=== PATIENT | male | born 1985 | race African-American/Black ===

== ENCOUNTER 2017-01-03 04:13 | Emergency (ER) | payer SELFPAY ==
[2017-01-03] MEDS ORDERED: NORMAL SALINE 1000 ML 1,000 ML IV ONE (06:31)
[2017-01-03 07:07] LABS: HEMATOCRIT 39.4 % (37.9-51.0); HEMOGLOBIN 11.9 g/dL (13.5-17.0); HGB HCT DIFFERENCE -3.7; MEAN CORPUSCULAR HEMOGLOBIN 27.7 pg (27.0-33.4); MEAN CORPUSCULAR VOLUME 92 fl (80-97); RED BLOOD COUNT 4.28 10^6/uL (4.35-5.55)
--- NOTE | 2017-01-03 07:08 | ER Document Report ---
ED General - General Chief Complaint: ETOH Abuse Stated Complaint: POSSIBLE INTOXICATION,UNRESPONSIVE Mode of Arrival: Medic Information source: Emergency Med Personnel Cannot obtain history due to: Altered mental status Notes: This is a 31-year-old male who is brought from the skilled nursing after being detained for DUI. Apparently at the skilled nursing he began vomiting and having altered mental status and so EMS was called. He is here for medical clearance prior to return to skilled nursing. There is no other medical history available at the time as the patient is not able to answer questions. - Related Data Allergies/Adverse Reactions: No Known Allergies Allergy (Verified 03/18/14 11:42) Past Medical History - General Information source: Emergency Med Personnel Cannot obtain history due to: Intoxicated, Altered mental status - Social History Smoking Status: Unknown if Ever Smoked Family History: Reviewed & Not Pertinent - Medical History Notes: Unknown, unable to obtain Pulmonary Medical History: Reports: Hx Asthma Surgical Hx: Other - Unknown, unable to obtain - Immunizations Hx Diphtheria, Pertussis, Tetanus Vaccination: Yes Review of Systems - Review of Systems -: Yes ROS unobtainable due to patient's medical condition Physical Exam - Vital signs Vitals: Pulse Resp BP Pulse Ox 75 16 117/68 93 01/03/17 04:17 01/03/17 04:17 01/03/17 04:17 01/03/17 04:17 - Notes Notes: PHYSICAL EXAMINATION: GENERAL: sleeping, arousable to tactile stimulation, opens eyes and pushes examiner away, will not answer questions, smells of alcohol HEAD: Atraumatic, normocephalic. EYES: Pupils equal round and reactive to light, sclera anicteric, conjunctiva are normal. ENT: nares patent, oropharynx clear without exudates. Moist mucous membranes. NECK: Normal range of motion, supple without lymphadenopathy LUNGS: Breath sounds clear to auscultation bilaterally and equal. No wheezes rales or rhonchi. HEART: Regular rate and rhythm without murmurs ABDOMEN: Soft, nontender, normoactive bowel sounds. No guarding, no rebound. No masses appreciated. EXTREMITIES: Normal range of motion, no pitting or edema. No evidence of trauma NEUROLOGICAL: responsive to tactile stimulation. Not cooperative with neuro exam but does move all 4 extremities SKIN: Warm, Dry, normal turgor, no rashes or lesions noted. Course - Re-evaluation Re-evalutation: 01/03/17 09:02 Patient is now awake and alert. He is standing up in the exam room and anxious to leave. He tells me that he had 2 or 3 beers last night. He states that he feels fine right now and denies any pain, nausea. His family is also in the room with him. His labs and CT are reviewed and he is comfortable with plan for discharge. Return precautions discussed. - Vital Signs Vital signs: Temp Pulse Resp BP Pulse Ox 97.6 F 72 18 109/61 100 01/03/17 09:11 01/03/17 09:11 01/03/17 09:11 01/03/17 09:11 01/03/17 09:11 - Laboratory Result Diagrams: 01/03/17 04:29 01/03/17 04:29 Laboratory results interpreted by me: 01/03/17 01/03/17 01/03/17 04:29 04:29 08:55 RBC 4.28 L Hgb 11.9 L MCHC 30.0 L Band Neutrophils % 1 L Potassium 3.5 L Glucose 132 H Urine Blood MODERATE H Serum alcohol level 174 - Diagnostic Test Radiology reviewed: Reports reviewed - CT head shows no acute abnormality Discharge - Discharge Clinical Impression: Acute alcohol intoxication Qualifiers: Complication of substance-induced condition: uncomplicated Qualified Code(s): F10.120 - Alcohol abuse with intoxication, uncomplicated Condition: Good Disposition: HOME, SELF-CARE Additional Instructions: ACUTE ALCOHOL INTOXICATION and ALCOHOL ABUSE: Your evaluation revealed very high levels of alcohol. You can from drinking a large amount of alcohol rapidly! Further, there's the risk of falls , traffic accidents, and fights. A high portion (about 50 percent) of the serious injuries seen in hospital emergency rooms are caused by alcohol. Alcohol overdosage is usually due to an underlying emotional or psychiatric problem. You may benefit from counselling. If "binge" drinking is an ongoing problem for you, or if you drink ANY AMOUNT of alcohol EVERY day, you most likely have a tendency to alcoholism. You should avoid alcohol totally. We can refer you for treatment. Persons with alcohol problems are often also prone to other addictions -- you should discuss any use of medications or drugs with the doctor. You should be watched at home for the next several hours by someone who has not been drinking. Get extra fluids for the next 24 hours. Call the doctor if there is repeated vomiting, increasing headache, decreasing level of alertness, or any other worsening. FOLLOW-UP CARE: If you have been referred to a physician for follow-up care, call the physician s office for an appointment as you were instructed or within the next two days. If you experience worsening or a significant change in your symptoms, notify the physician immediately or return to the Emergency Department at any time for re-evaluation.
[2017-01-03 07:21] LABS: ALANINE AMINOTRANSFERASE 36 U/L (21-72); ALBUMIN 4.7 g/dL (3.5-5.0); ALCOHOL 174 mg/dL (NONE DETECTED); ALKALINE PHOSPHATASE 82 U/L (38-126); ANION GAP 17 (5-19); ASPARTATE AMINO TRANSFERASE 26 U/L (17-59); BILIRUBIN,TOTAL 0.6 mg/dL (0.2-1.3); BLOOD UREA NITROGEN 14 mg/dL (7-20); CALCIUM 9.2 mg/dL (8.4-10.2); CARBON DIOXIDE 24 mmol/L (22-30); CHLORIDE 100 mmol/L (98-107); CREATININE RESULT 1.03 mg/dL (0.52-1.25); GLUCOSE 132 mg/dL (75-110); POTASSIUM 3.5 mmol/L (3.6-5.0); SODIUM 141.1 mmol/L (137-145); TOTAL PROTEIN 7.8 g/dL (6.3-8.2)
[2017-01-03 07:30] LABS: BAND NEUTROPHILS % (MANUAL) 1 % (3-5); BASOPHILS % (MANUAL) 0 % (0-2); EOSINOPHILS % (MANUAL) 2 % (0-6); LYMPHOCYTES % (MANUAL) 37 % (13-45); TOTAL CELLS COUNTED 100
[2017-01-03 07:31] LABS: PLATELET CLUMPS PRESENT; RBC MORPHOLOGY COMMENT NORMO-CYTIC/CHROMIC
[2017-01-03 09:12] VITALS: BP 109/61
[2017-01-03 09:19] LABS: APPEARANCE,URINE CLEAR; BILIRUBIN,URINE NEGATIVE (NEGATIVE); GLUCOSE, URINE NEGATIVE (NEGATIVE); KETONES,URINE NEGATIVE (NEGATIVE); LEUKOCYTE ESTERASE,URINE NEGATIVE (NEGATIVE); NITRITE,URINE NEGATIVE (NEGATIVE); PROTEIN,URINE NEGATIVE (NEGATIVE); URINE SPECIFIC GRAVITY 1.008; UROBILINOGEN,URINE NEGATIVE mg/dL (<2.0)
[2017-01-03 09:36] LABS: URINE BARBITURATES SCREEN NEGATIVE; URINE METHADONE SCREEN NEGATIVE; URINE OPIATES LOW NEGATIVE; URINE PHENCYCLIDINE SCREEN NEGATIVE
== END 2017-01-03 09:20 | disposition home or self-care (01) ==
LOC: ER 04:13
DX: F10.120 Alcohol abuse with intoxication, uncomplicated (principal); R41.82 Altered mental status, unspecified
CPT/HCPCS: 99284; 96360; 36415; 80307 ×2; 85025; 80053; 81001; 70450; J7030

== ENCOUNTER 2019-09-01 04:41 | Emergency (ER) | payer SELFPAY ==
[2019-09-01] MEDS ORDERED: ONDANSETRON HCL INJ/PF 4 MG/2 ML SDV IV ONE (05:25)
[2019-09-01] MEDS ORDERED: FAMOTIDINE INJ/PF 20 MG/2 ML SDV IV ONE (05:33)
[2019-09-01] MEDS ORDERED: NORMAL SALINE 1000 ML 1,000 ML IV ONE (05:33)
[2019-09-01 06:31] LABS: ABSOLUTE EOSINOPHILS # (AUTO) 0.1 10^3/uL (0.0-0.6); ABSOLUTE MONOCYTES (AUTO) 0.5 10^3/uL (0.1-1.4); ABSOLUTE NEUT (AUTO) 8.5 10^3/uL (1.7-8.2); BASOPHILS % (AUTO) 0.5 % (0-2); EOSINOPHILS % (AUTO) 0.6 % (0-6); HEMATOCRIT 41.1 % (37.9-51.0); HEMOGLOBIN 13.7 g/dL (13.5-17.0); LYMPHOCYTES % (AUTO) 9.6 % (13-45); MEAN CORPUSCULAR HEMOGLOBIN 31.4 pg (27.0-33.4); MEAN CORPUSCULAR HGB CONC 33.3 g/dL (32.0-36.0); MEAN CORPUSCULAR VOLUME 94 fl (80-97); MONOCYTES % (AUTO) 4.9 % (3-13); PLATELET COUNT 265 10^3/uL (150-450); RED BLOOD COUNT 4.36 10^6/uL (4.35-5.55); RED CELL DISTRIBUTION WIDTH 12.7 % (11.5-14.0); SEGMENTED NEUTROPHILS % (AUTO) 84.4 % (42-78); TOTAL CELLS COUNTED % (AUTO) 100 %; WHITE BLOOD COUNT 10.1 10^3/uL (4.0-10.5)
--- NOTE | 2019-09-01 06:36 | ER Document Report ---
ED GI/ - General Chief Complaint: Vomiting Stated Complaint: VOMITING Time Seen by Provider: 09/01/19 05:33 Notes: Patient is a 34-year-old male presents to the emergency department for nausea and vomiting. States he woke up proximally 30 minutes prior to coming to the emergency department with generalized epigastric abdominal pain. States he is vomited "4 or 5 times" since arrival to the emergency department. Patient's denying any blood in his emesis. Patient's denying any diarrhea or fevers. States he bought a "meal plate" from a family friend this evening and feels as though he may have food poisoning. Patient's denying any dysuria. Patient is also complaining of left ear pain. TRAVEL OUTSIDE OF THE [place] IN LAST 30 DAYS: No - Related Data Allergies/Adverse Reactions: No Known Allergies Allergy (Verified 03/18/14 11:42) Past Medical History - General Information source: Patient - Social History Smoking Status: Current Every Day Smoker Frequency of alcohol use: None Drug Abuse: None Family History: Reviewed & Not Pertinent Patient has suicidal ideation: No Patient has homicidal ideation: No Pulmonary Medical History: Reports: Hx Asthma - Immunizations Hx Diphtheria, Pertussis, Tetanus Vaccination: Yes Review of Systems - Review of Systems Constitutional: denies: Fever EENT: See HPI Cardiovascular: No symptoms reported Respiratory: No symptoms reported Gastrointestinal: See HPI Genitourinary: No symptoms reported Male Genitourinary: No symptoms reported Musculoskeletal: No symptoms reported Skin: No symptoms reported Hematologic/Lymphatic: No symptoms reported Neurological/Psychological: No symptoms reported Physical Exam - Vital signs Vitals: Temp Pulse Resp BP Pulse Ox 97.5 F 79 16 115/75 98 09/01/19 04:50 09/01/19 04:50 09/01/19 04:50 09/01/19 04:50 09/01/19 04:50 - Notes Notes: GENERAL: Alert, interacts well. No acute distress. HEAD: Normocephalic, atraumatic. EYES: Pupils equal, round, and reactive to light. Extraocular movements intact. ENT: Oral mucosa moist, tongue midline. Right TM and canal within normal limits, left TM within normal limits, canal erythematous and swollen, positive tragal tenderness noted. No mastoid erythema or tenderness noted bilaterally. NECK: Full range of motion. Supple. Trachea midline. LUNGS: Clear to auscultation bilaterally, no wheezes, rales, or rhonchi. No respiratory distress. HEART: Regular rate and rhythm. No murmur ABDOMEN: Soft, slight epigastric abdominal pain noted, otherwise abdominal exam benign. Non-distended. Bowel sounds present in all 4 quadrants. EXTREMITIES: Moves all 4 extremities spontaneously. No edema, normal radial and dorsalis pedis pulses bilaterally. No cyanosis. BACK: no cervical, thoracic, lumbar midline tenderness. No saddle anesthesia, normal distal neurovascular exam. No CVA tenderness noted bilaterally. NEUROLOGICAL: Alert and oriented x3. Normal speech. cranial nerves II through XII grossly intact PSYCH: Normal affect, normal mood. SKIN: Warm, dry, normal turgor. No rashes or lesions noted. Course - Re-evaluation Re-evalutation: 09/01/19 07:15 Laboratory 09/01/19 09/01/19 09/01/19 06:04 06:04 06:24 WBC 10.1 RBC 4.36 Hgb 13.7 Hct 41.1 MCV 94 MCH 31.4 MCHC 33.3 RDW 12.7 Plt Count 265 Lymph % (Auto) 9.6 L [place] % (Auto) 4.9 Eos % (Auto) 0.6 Baso % (Auto) 0.5 Absolute Neuts (auto) 8.5 H Absolute Lymphs (auto) 1.0 Absolute Monos (auto) 0.5 Absolute Eos (auto) 0.1 Absolute Basos (auto) 0.0 Seg Neutrophils % 84.4 H Sodium 139.9 Potassium 3.6 Chloride 102 Carbon Dioxide 28 Anion Gap 10 BUN 13 Creatinine 1.07 Est GFR ( Amer) > 60 Est GFR (MDRD) Non-Af > 60 Glucose 95 Calcium 9.8 Total Bilirubin 1.0 Direct Bilirubin 0.1 Neonat Total Bilirubin Not Reportable Neonat Direct Bilirubin Not Reportable Neonat Indirect Bili Not Reportable AST 29 ALT 22 Alkaline Phosphatase 81 Total Protein 7.6 Albumin 4.6 Lipase 82.9 Urine Color YELLOW Urine Appearance SLIGHTLY-CLOUDY Urine pH 5.0 Ur Specific [place] 1.024 Urine Protein 30 H Urine Glucose (UA) NEGATIVE Urine Ketones NEGATIVE Urine Blood LARGE H Urine Nitrite NEGATIVE Urine Bilirubin NEGATIVE Urine Urobilinogen NEGATIVE Ur Leukocyte Esterase NEGATIVE Urine WBC (Auto) 1 Urine RBC (Auto) 7 U Hyaline Cast (Auto) 3 Squamous Epi Cells Auto <1 Urine Mucus (Auto) MOD Urine Ascorbic Acid NEGATIVE Patient's nausea vomiting and epigastric pain has subsided. Patient is able to drink fluids in the emergency department with no further episodes of vomiting. Repeat physical exam reveals no epigastric abdominal pain. Abdominal exam is be nign. Discussed continued use of Zofran, Pepcid and Ciprodex for left otitis externa. At this time will discharge with return precautions and follow-up recommendations. Verbal discharge instructions given a the bedside and opportunity for questions given. Medication warnings reviewed. Patient is in agreement with this plan and has verbalized understanding of return precautions and the need for primary care follow-up in the next 24-72 hours. This medical record was dictated with voice recognizing software. There may be grammatical, syntax errors that are unintended. - Vital Signs Vital signs: Temp Pulse Resp BP Pulse Ox 97.5 F 79 16 123/68 100 09/01/19 04:50 09/01/19 04:50 09/01/19 06:40 09/01/19 06:40 09/01/19 06:40 - Laboratory Result Diagrams: 09/01/19 06:04 09/01/19 06:04 Laboratory results interpreted by me: 09/01/19 09/01/19 06:04 06:24 Lymph % (Auto) 9.6 L Absolute Neuts (auto) 8.5 H Seg Neutrophils % 84.4 H Urine Protein 30 H Urine Blood LARGE H Discharge - Discharge Clinical Impression: Nausea & vomiting Qualifiers: Vomiting type: unspecified Vomiting Intractability: non-intractable Qualified Code(s): R11.2 - Nausea with vomiting, unspecified Left otitis externa Qualifiers: Otitis externa type: unspecified type Chronicity: acute Qualified Code(s): H60.502 - Unspecified acute noninfective otitis externa, left ear Condition: Stable Disposition: HOME, SELF-CARE Instructions: Antinausea Medication ([facility]), Intravenous (IV) Fluids ([facility]), Use of Ear Drops ([facility]), Otitis Externa ([facility]), Vomiting ([facility]) Additional Instructions: You have been seen and treated in the emergency department for your nausea and vomiting. You also have an outer ear infection. Please use nausea medication as needed. Please also use prescription eardrops as prescribed. Please follow- up with your primary care provider in the next 24 to 48 hours. Return to the emergency room for any concerns. Prescriptions: Ciprofloxacin HCl/Dexameth [Ciprodex Otic Suspension 7.5 ml Bottle] 4 drop BID 5 Days #1 bottle Famotidine [Pepcid 40 mg Tablet] 40 mg PO BID #60 tablet Forms: Return to Work Referrals: [facility] [Provider Group] - Follow up as needed [facility] [Provider Group] - Follow up as needed
[2019-09-01 06:39] LABS: APPEARANCE,URINE SLIGHTLY-CLOUDY; BILIRUBIN,URINE NEGATIVE (NEGATIVE); COLOR,URINE YELLOW; GLUCOSE, URINE NEGATIVE (NEGATIVE); KETONES,URINE NEGATIVE (NEGATIVE); LEUKOCYTE ESTERASE,URINE NEGATIVE (NEGATIVE); NITRITE,URINE NEGATIVE (NEGATIVE); PROTEIN,URINE 30 mg/dL (NEGATIVE); URINE SPECIFIC GRAVITY 1.024; UROBILINOGEN,URINE NEGATIVE mg/dL (<2.0)
[2019-09-01 06:50] LABS: ALBUMIN 4.6 g/dL (3.5-5.0); ALKALINE PHOSPHATASE 81 U/L (38-126); ANION GAP 10 (5-19); ASPARTATE AMINO TRANSFERASE 29 U/L (17-59); BILIRUBIN,DIRECT 0.1 mg/dL (0.0-0.4); BLOOD UREA NITROGEN 13 mg/dL (7-20); CALCIUM 9.8 mg/dL (8.4-10.2); CARBON DIOXIDE 28 mmol/L (22-30); CHLORIDE 102 mmol/L (98-107); GLUCOSE 95 mg/dL (75-110); POTASSIUM 3.6 mmol/L (3.6-5.0); TOTAL PROTEIN 7.6 g/dL (6.3-8.2)
[2019-09-01] MEDS ORDERED: CIPROFLOXACIN HCL/DEXAMETH OTIC DROP 7.5 ML AS ONE (07:13)
[2019-09-01] MEDS ORDERED: ONDANSETRON ODT 4 MG TAB (6 TAB/ER DISP) PO PRN (07:35)
[2019-09-01 07:38] VITALS: BP 114/64
== END 2019-09-01 07:44 | disposition home or self-care (01) ==
LOC: ER 04:41
DX: H60.502 Unspecified acute noninfective otitis externa, left ear (principal); R11.2 Nausea with vomiting, unspecified; H92.02 Otalgia, left ear; R10.13 Epigastric pain; F17.200 Nicotine dependence, unspecified, uncomplicated; J45.909 Unspecified asthma, uncomplicated
CPT/HCPCS: 36415; 83690; 85025; 80053; 81001; J3490; J2405; J7030; S0028; 96361; 96374; 96375; 99283